=== PATIENT | female | born 1995 | race Caucasian/White ===

== ENCOUNTER 2016-06-30 17:34 | Emergency (ER) | payer OTHER ==
[2016-06-30] MEDS ORDERED: IBUPROFEN 600 MG TABLET ONE (19:07)
--- NOTE | 2016-06-30 19:35 | RAD ---
SHOULDER-RIGHT 2 OR MORE VIEWS History: Shoulder pain for 2 days. Lifting injury. Comparison: None. Findings: The osseous structures appear to be intact with no discrete fracture visualized. The glenohumeral alignment appears to be within expected. The acromiohumeral distance is well maintained. No soft tissue calcifications are identified. The acromioclavicular joint is not widened. The included lung field appears to be unremarkable. Impression: 1. Negative views of the right shoulder.
== END 2016-06-30 19:42 | disposition home or self-care (01) ==
LOC: ED 17:34
DX: M25.511 Pain in right shoulder (principal); X50.0XXD Overexertion from strenuous movement or load, subsequent encounter; Y92.9 Unspecified place or not applicable; Y99.0 Civilian activity done for income or pay
CPT/HCPCS: 73030; 99283 ×2; A9270